=== PATIENT | female | born 1935 | race Caucasian/White ===

== ENCOUNTER 2016-05-11 16:28 | Inpatient (IN) | payer MEDICARE, BC ==
[~2016-05-11] VITALS: Ht 153.7 cm; Wt 78.3 kg
--- NOTE | ~2016-05-11 | CON ---
PATIENT'S NAME: INOCENCIA ARMIJO [facility] AGE: 81 Y [address] ROOM: [address] [address] LOCATION: GICU ADMIT DATE: 05/11/2016 Consultation DISCHARGE DATE: FAMILY PHYSICIAN: PHYSICIAN, UNKNOWN ATTENDING PHYSICIAN: CARLINE NASH DATE OF CONSULTATION: 05/11/2016 REFERRING PHYSICIAN: Luba Johnson NEPHROLOGY CONSULTATION REQUESTING PHYSICIAN: Dr. Wood. REASON FOR CONSULTATION: End-stage renal failure, the patient is on peritoneal dialysis. HISTORY OF PRESENT ILLNESS: The patient is an 81-year-old white female with end-stage renal disease from diabetes, hypertension, and cardiorenal syndrome. She is currently on CCPD. The patient was admitted to the hospital on April 06, 2016, with new onset atrial fibrillation. She also had nausea and vomiting at that time. Her son reports that over the last 2 days, she has been having abdominal pain, discomfort, vomiting and retching, and she at least passed 10 loose stools yesterday and today. At one point, she did notice that there was some blood in the stool. She went to the emergency room in [facility] with diffuse abdominal pain. She did have her peritoneal dialysis yesterday, and this morning she drained and actually had an ultrafiltration of 500 mL. Peritoneal dialysis fluid was clear. The patient progressively became hypotensive with systolic blood pressure in the 80s, and therefore, she was transferred to [facility] for further management. Her son reports that en route, she had at least 6 bowel movements. REVIEW OF SYSTEMS: GENERAL: She denies any fever. She is tired. HEENT: Denies any sore throat or sinus congestion. CARDIOVASCULAR: Denies any chest pain or dyspnea on exertion. RESPIRATORY: Denies shortness of breath, cough, or wheezing. GI: She has been having retching and persistent watery diarrhea and abdominal pain and discomfort. : She is a dialysis patient and does not make any urine. MUSCULOSKELETAL: She denies any joint pain or swelling. SKIN: Denies any rash or pruritus. Denies any allergies or hay fever. HEMATOLOGIC/LYMPHATICS: Denies any lymph node enlargement or easy bruising. ENDOCRINE: Denies any heat or cold intolerance. PSYCH: Denies any sadness, crying spells, poor concentration, or panic PATIENT'S NAME: DAVID ARMIJOA Vinny [facility] AGE: 81 Y [address] ROOM: [place] [address] LOCATION: GICU ADMIT DATE: 05/11/2016 Consultation DISCHARGE DATE: FAMILY PHYSICIAN: PHYSICIAN, UNKNOWN ATTENDING PHYSICIAN: CARLINE NASH. ALLERGIES: ALLERGIC TO PENICILLIN, CARVEDILOL, BYSTOLIC, HEPARIN, SPIRONOLACTONE, IBUPROFEN, QUININE, AND DILTIAZEM. MEDICATIONS: 1. Furosemide 200 mg in the morning. 2. Sucralfate 1 g twice a day. 3. Folic acid 400 mcg a day. 4. Imdur 60 mg a day. 5. Levothyroxine 137 mcg a day. 6. Omeprazole 20 mg a day. 7. Potassium 20 mEq a day. 8. Vitamin B12 100 mcg a day. 9. Calcitriol 0.25 mcg a day. 10. Lantus insulin 20 units every day. 11. Ferrous sulfate as prescribed. 12. Oxygen as prescribed. 13. Acetaminophen. 14. Ondansetron. 15. Mupirocin. 16. Ketoconazole. 17. Gentamicin. 18. Fluticasone. 19. Cetirizine. 20. Atorvastatin 80 mg a day. PAST MEDICAL HISTORY: End-stage renal failure, on peritoneal dialysis; obesity; peptic ulcer disease; leg edema; hypothyroidism; atrial fibrillation; COPD; chronic diastolic dysfunction of the heart; coronary artery disease. PAST SURGICAL HISTORY: Appendectomy, hysterectomy, coronary artery bypass grafting, cardiac catheterization, stent placement, peritoneal dialysis catheter placement. FAMILY HISTORY: No family history of kidney disease or dialysis. SOCIAL HISTORY: The patient is . Her was on hemodialysis for 8 years prior to his demise. She had 5 grown children. A son runs her dialysis treatment. A daughter last month from ovarian cancer. No history of tobacco or alcohol. PATIENT'S NAME: [facility] AGE: 81 Y [address] ROOM: [place] [address] LOCATION: [facility] ADMIT DATE: 05/11/2016 Consultation DISCHARGE DATE: FAMILY PHYSICIAN: PHYSICIAN, UNKNOWN ATTENDING PHYSICIAN: CARLINE NASH PHYSICAL EXAMINATION: GENERAL APPEARANCE: Elderly white female, looks pale with sunken eyes and sunken cheeks. VITAL SIGNS: Afebrile, pulse is 96, systolic blood pressure of 96, diastolic is 69, respiratory rate of 20. HEENT: Head is normocephalic. Pupils are round and equal. Normal eyelid and pale conjunctivae. Oral cavity clear. Dry mucosa. NECK: Trachea central. No thyromegaly. Flat jugular veins. No bruits. HEART: Sounds are audible in all the areas. Pulses are irregularly irregular. LUNGS: Bilaterally clear to auscultate. No intercostal retraction. ABDOMEN: Soft but mild diffuse tenderness. Peritoneal dialysis catheter with a clean exit site. EXTREMITIES: No clubbing or cyanosis. SKIN: No sign of vasculitis. She has poor skin turgor. LYMPHATICS: Did not examine lymphatics. NEUROLOGIC: The patient is alert and oriented x3. Grossly nonfocal. HIGHER PSYCHIATRIC FUNCTION: She has normal speech and mental status. LABORATORY DATA: Blood work drawn at the hospital in [place] this morning shows WBC of 17.9, hemoglobin 12.6, hematocrit 37.6, platelet count of 124. Potassium 3.4, chloride 93, anion gap of 31, bicarb of 19, BUN of 50, creatinine of 8.9, calcium 8.2, albumin of 1.0. ASSESSMENT: 1. End-stage renal failure. 2. Persistent diarrhea, most likely from C. difficile colitis. 3. Severe dehydration from volume loss. 4. Abdominal pain, again probably from C. difficile, but we need to rule out other possibility like ischemic bowel. 5. Hypothyroidism. 6. Chronic obstructive pulmonary disease. 7. Chronic congestive heart failure from diastolic dysfunction. 8. Elevated white count. 9. Coronary artery disease. PLAN: I will give her bolus of normal saline and then start her on lactated Ringer's at 100 mL an hour. I agree that she needs to go down for a CT scan of the abdomen with intravenous and without contrast to rule out possibility of ischemic bowel. There has been a mention that she had blood in the stool. I will also check her peritoneal dialysis fluid for cell count and culture. PATIENT'S NAME: INOCENCIA ARMIJO [facility] AGE: 81 Y [address] ROOM: [place] [address] LOCATION: [facility] ADMIT DATE: 05/11/2016 Consultation DISCHARGE DATE: FAMILY PHYSICIAN: PHYSICIAN, UNKNOWN ATTENDING PHYSICIAN: CARLINE NASH I would like to thank Dr. Wood for allowing me to participate in this patient's care. M ELICIA JOHNSON MD MII/modl /[id number] CC: Daren Davies MD d: 05/12/16 0020 t: 05/20/16 1505, CONSULTATION REPORT
--- NOTE | ~2016-05-11 | DS ---
PATIENT'S NAME: INOCENCIA ARMIJO [facility] AGE: 81 Y [address] ROOM: [id number] [place], [place] [address] LOCATION: GICU ADMIT DATE: 05/11/2016 Discharge Summary DISCHARGE DATE: 05/16/2016 FAMILY PHYSICIAN: Physician, Unknown ATTENDING PHYSICIAN: Akin Powell PRINCIPAL DIAGNOSIS: Acute diarrhea. SECONDARY DIAGNOSES: 1. End-stage renal disease, on peritoneal dialysis. 2. Type 2 diabetes. 3. Anemia of chronic disease. 4. Hypokalemia. 5. Atrial fibrillation, rate controlled. Not on any oral anticoagulation. 6. Coronary artery disease, not on aspirin or Plavix with history of stents due to extensive history of gastrointestinal bleeding. HOSPITAL COURSE: An 81-year-old lady with the above-mentioned past medical history, who was admitted to the [facility] with abdominal pain and diarrhea. No bacterial infectious cause of diarrhea was identified including stool culture and C. diff assays. There was some concern for melena and stool guaiac test was positive, but her hemoglobin stayed stable and it was deemed that the stool guaiac is falsely positive. She was volume resuscitated, and her diarrhea resolved over the course of the next couple of days. During the hospital course, Gastroenterology consultation was obtained as well. Nephrology also helped with the end-stage renal disease and managing the peritoneal dialysis. There was some concern for SBP, but paracentesis was negative for any high neutrophils or WBC count. On discharge, no medication changes were made to her home meds. On discharge, home medications include, 1. Tylenol 500 mg p.o. every night at bedtime. 2. Amiodarone 200 mg p.o. twice daily. 3. Atorvastatin 80 mg p.o. every night at bedtime. 4. Calcitriol 0.25 mcg p.o. every day. 5. Cyanocobalamin 20,000 mcg p.o. every day. 6. Diphenhydramine 25 mg p.o. every night at bedtime. 7. Folic acid 400 mcg p.o. every day. 8. Clindamycin 600 mg p.o. 1 time p.r.n. predental prophylaxis. 9. Insulin glargine 20 units subcu every night at bedtime. 10. Insulin lispro 6 to 10 units subcu 3 times daily per sliding scale. 11. Isosorbide mononitrate 60 mg p.o. every day. 12. Levothyroxine 137 mcg p.o. every day. 13. Omeprazole 40 mg p.o. twice daily. 14. Sucralfate 1 g p.o. twice daily. 15. Zofran 4 mg p.o. every 8 hours p.r.n. for nausea and vomiting. 16. CPAP oxygen tank. PATIENT'S NAME: INOCENCIA ARMIJO [facility] AGE: 81 Y [address] ROOM: [id number] [place], [place] [address] LOCATION: [facility] ADMIT DATE: 05/11/2016 Discharge Summary DISCHARGE DATE: 05/16/2016 FAMILY PHYSICIAN: Physician, Unknown ATTENDING PHYSICIAN: Akin Powell 17. Darbepoetin with the dialysis. DISCHARGE INSTRUCTIONS: Diet, renal diet. Activity, no restrictions. Follow up with the primary care physician in 1 week. HEMODYNAMICS: Stable on discharge. NOTABLE LAB WORK ON DISCHARGE: Hemoglobin 9.8, platelets 64. Sodium 132; potassium 3.0, which was replaced; chloride 98; bicarb 19, calcium 7.0; BUN and creatinine were 49 and 7.8 respectively given she is on chronic peritoneal dialysis. I spent greater than 35 minutes in discharge planning of this patient. MD LORENZO BONILLA/florentino /[id number] d: 05/17/16 0105 t: 05/21/16 0751, DISCHARGE SUMMARY
--- NOTE | ~2016-05-11 | HP ---
PATIENT'S NAME: INOCENCIA ARMIJO [facility] AGE: 81 Y [address] ROOM: [address] [address] LOCATION: [facility] ADMIT DATE: 05/11/2016 History & Physical DISCHARGE DATE: FAMILY PHYSICIAN: PHYSICIAN, UNKNOWN ATTENDING PHYSICIAN: CARLINE NASH DATE OF SERVICE: ATTENDING PHYSICIAN: Tomi Lam M.D. PRIMARY CARE PHYSICIAN: None. CHIEF COMPLAINT: Abdominal pain. HISTORY OF PRESENT ILLNESS: This is an 81-year-old female with a history of end-stage renal disease, on peritoneal dialysis. The patient recently had a demise of her daughter in [place], [place]. She traveled from [place], [place], yesterday and came back last night to her home in [place]. The patient has been evaluated repeatedly for abdominal pain at [facility]. She was here around [place] time, at which point she was thought to have pneumonia and was treated. She was then discharged subsequently. She re-presented back to the ER and was admitted for concerns of peritonitis after Ama[place], peritoneal fluid culture at that point of time was negative. The patient continued to do well and she was discharged. The patient states that she has been having diarrhea for the past 2 to 3 days. She had 10 episodes of watery bowel movement yesterday. She also had about 6 bowel movements today, which is all watery. She has noticed some blood in her stool per the patient. She complains of slight lightheadedness. She complains of abdominal discomfort, primarily on the right upper and right lower quadrant. She has been nauseous and has been retching as well. Denies any fever history. She stated that she did have her peritoneal dialysis last night and the fluid has been clear so far. Denies any chest pain. Denies any shortness of breath. She has a history of COPD and requires O2 and uses CPAP at bedtime. Denies any other pain issues. No other complaints at this point of time. REVIEW OF SYSTEMS: A 10-point review of system was done and was otherwise negative except as mentioned above. FAMILY HISTORY: Father with CHF. Mother with stroke. Sister with breast cancer. Daughter passed from ovarian cancer. PATIENT'S NAME: INOCENCIA ARMIJO [facility] AGE: 81 Y [address] ROOM: [address] [address] LOCATION: GICU ADMIT DATE: 05/11/2016 History & Physical DISCHARGE DATE: FAMILY PHYSICIAN: PHYSICIAN, UNKNOWN ATTENDING PHYSICIAN: CARLINE NASH PAST SURGICAL HISTORY: 1. Partial hysterectomy. 2. Appendectomy. 3. Three-vessel CABG. 4. History of cardiac stents. 5. Many colonoscopies. 6. Peritonei dialysis catheter placement. 7. Bilateral cataract surgery. 8. Tonsillectomy. 9. 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 10. Placement of port. PAST MEDICAL HISTORY: 1. CAD, status post CABG. 2. Hypertension. 3. CVA. 4. TIA 2 years ago. 5. AFib. 6. Congestive heart failure. 7. COPD. 8. VALE, on CPAP at bedtime. 9. Lung scarring from Coreg. 10. Arthritis. 11. End-stage renal disease, on peritoneal dialysis. 12. Diabetes mellitus type 2. 13. Thyroid disease. SOCIAL HISTORY: Denies smoking or alcohol use. She currently lives independently in [place]. She is a former smoker, 20-year history of smoking. PHYSICAL EXAMINATION: VITAL SIGNS: Temperature 98.1; pulse 80, regular; respirations 18; blood pressure 96/57; and saturation 98% on 4 L nasal cannula oxygen. GENERAL: The patient is alert and oriented x3, answers all questions appropriately, in no acute distress. HEENT: Head: Normocephalic, atraumatic. Pupils are equal, round, and reactive to light. Extraocular muscles are intact. Nares clear. Throat clear. Mucous membranes dry. NECK: Supple. No nuchal rigidity. HEART: Regular rate and rhythm. LUNGS: Clear to auscultation bilaterally. ABDOMEN: Soft. The patient has slight tenderness to palpation in the right upper and right lower quadrant. Slight guarding, but no rigidity noted. Peritoneal dialysis catheter is present. Area around the peritoneal dialysis PATIENT'S NAME: INOCENCIA ARMIJO [facility] AGE: 81 Y [address] ROOM: [address] [address] LOCATION: GICU ADMIT DATE: 05/11/2016 History & Physical DISCHARGE DATE: FAMILY PHYSICIAN: PHYSICIAN, UNKNOWN ATTENDING PHYSICIAN: CARLINE NASH appears clear. Bowel sounds present. EXTREMITIES: There is no clubbing, cyanosis, or edema. VASCULAR: Pulses 2+ distally bilaterally. NEUROLOGIC: The patient is alert and oriented x3. Follows all commands. Moves all extremities. Gait is not assessed. Cranial nerves 2 through 12 grossly intact. DIAGNOSTIC STUDIES: Studies were reviewed from the referral hospital. Lipase 296. CBC showed a white count of 17.9, hemoglobin 12.6, hematocrit 37.6, platelets 124. Amylase 148. CMP showed sodium 140, potassium 3.4, chloride 93, bicarb 19, glucose 319, BUN 50, creatinine 8.91, GFR 4, calcium 8.2, total protein 7.2, globulin 3.5, albumin 3.7, AST 21, ALT 23, alkaline phosphatase 158, total bilirubin 0.8, C-reactive protein 6.0. Studies were done at [facility]. EKG showed sinus rhythm with a first-degree AV block and a OK interval of 154 milliseconds. Also showed left anterior fascicular block, rate of 77 beats per minute. No acute ST changes noted. Chest x-ray showed no acute cardiopulmonary abnormality. ABG was done on admission and showed a pH of 7.37, pCO2 of 37, pO2 of 101, bicarb 21.4. Lactate level on admission was 1.5. CBC showed a white count of 18.7, hemoglobin 11.7, hematocrit 36.4, platelets 110. CMP showed sodium 138, potassium 3.0, chloride 98, bicarb 24, BUN 53, creatinine 10.1, glucose 170, calcium 7.3, total protein 7.3, albumin 2.5, AST 19, ALT 16, alkaline phosphatase 136, total bilirubin 0.4, GFR 4, anion gap 19.0, globulin 4.8, PT 13.1, INR 1.2, PTT 31. Procalcitonin level 0.81. Peritoneal fluid studies have been obtained and are pending at this point of time. CT abdomen and pelvis with and without contrast was done and showed a central dialysis catheter present. A small amount of free fluid within the abdomen and pelvis noted. Cholelithiasis present. Indeterminate left adrenal nodule measuring 15 mm was noted. There is a benign cystic lesion involving the tail of the pancreas measuring 10 mm. No pancreatitis noted. Blood cultures are pending at this point of time. Peritoneal fluid culture is pending. C. diff test pending. Stool studies pending. ASSESSMENT AND PLAN: An 81-year-old female with a history of end-stage renal disease, on peritoneal dialysis, presenting with abdominal pain. 1. Abdominal pain. Unsure about the cause of her abdominal pain. This could be secondary to Clostridium difficile colitis versus peritonitis. Discussed with Dr. De Dios and chances of peritonitis are low. We still did obtain a peritoneal fluid for culture. I will place her on broad- spectrum antibiotics including Azactam and Flagyl for now. Cultures have been obtained. The patient is on the sepsis protocol. 2. Sepsis. Concern for sepsis. The patient is in the ICU. Her blood PATIENT'S NAME: INOCENCIA ARMIJO [facility] AGE: 81 Y [address] ROOM: [place] [address] LOCATION: [facility] ADMIT DATE: 05/11/2016 History & Physical DISCHARGE DATE: FAMILY PHYSICIAN: PHYSICIAN, UNKNOWN ATTENDING PHYSICIAN: CARLINE NASH pressure is slightly on the lower side. We will hydrate her gently with lactated Ringer's. 3. End-stage renal disease, on peritoneal dialysis. Further recommendations per Dr. De Dios. 4. History of chronic obstructive pulmonary disease. RT to score and treat. Monitor for now. O2 as needed to keep saturations 88% to 95%. 5. Diabetes mellitus. I will place her on sliding scale insulin for now. 6. History of coronary artery disease, status post coronary artery bypass graft. Continue home medications. 7. Deep vein thrombosis prophylaxis. SCD to legs. The patient has heparin allergy. 8. Code status, full code. Discussed with the patient at the time of admission. TOMI LAM MD MT/florentino /[id number] D: 443 T: HISTORY & PHYSICAL
--- NOTE | ~2016-05-11 | CON ---
PATIENT'S NAME: INOCENCIA ARMIJO [facility] AGE: 81 Y [address] ROOM: [id number], [place] [address] LOCATION: GICU ADMIT DATE: 05/11/2016 Consultation DISCHARGE DATE: FAMILY PHYSICIAN: PHYSICIAN, UNKNOWN ATTENDING PHYSICIAN: CARLINE NASH DATE OF CONSULTATION: 05/14/2016 REFERRING PHYSICIAN: Luba De Dios REFERRING PROVIDER: Pippa Goel MD REASON FOR CONSULTATION: Diarrhea and anemia. HISTORY OF PRESENT ILLNESS: This is a very pleasant, 81-year-old female with history of end-stage renal disease, on home peritoneal dialysis. The patient was admitted with significant diarrhea, in upwards of 20 times per day. The patient is a good historian. She does recall recently being under a significant amount of stress as the patient's daughter recently . The patient had traveled to [place], [place]. She began not feeling well on Friday. The patient, at that time, was experiencing significant fatigue. On Friday, she began having diarrhea. She describes this as loose watery without any formed stool. At that time, she denied any blood in the stool and/or melena. The patient retreated back home. On Friday and Friday, the abdominal pain and diarrhea became significantly worse, in upwards of 20 times per day. The patient did notice at that time some bright red blood within the stool and with wiping. She does state that she was significantly "raw" secondary to the numerous bowel movements. In questioning the patient, the patient did undergo a colonoscopy approximately 3 years ago. She does have a history of what appears to be small bowel AVMs with double-balloon enteroscopy and cautery completed approximately 3 years ago in [place]. The patient has been receiving Aranesp in regard to her anemia. Her anemia has been better since starting this. She does deny any acute blood loss. No vomiting of blood or noticeable blood in the stool. The patient previously had undergone multiple blood transfusions, though the last blood transfusion she recalls was approximately 5 months ago. The patient, at the time of our evaluation, denied any chest pain or chest pressure. No lightheadedness, abdominal pain, nausea, vomiting, fever, or chills. PAST MEDICAL HISTORY: End-stage renal disease, on peritoneal dialysis; CAD, status post CABG; hypertension; CVA; TIA approximately 2 years ago; atrial fibrillation; congestive heart failure; COPD; VALE, on CPAP at bedtime; lung scarring from Coreg; arthritis; diabetes mellitus, type 2; thyroid disease; and history of small bowel arteriovenous malformation. PATIENT'S NAME: INOCENCIA ARMIJO [facility] AGE: 81 Y [address] 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 SOCIAL HISTORY: The patient denies any smoking or alcohol use. She currently lives independently in [place]. She does recall being under a significant amount of stress recently as the patient's daughter recently . The patient's son is at bedside during interview. She does appear to have good social support. FAMILY HISTORY: The patient's father with congestive heart failure. The patient's mother had a stroke. The patient's sister with breast cancer. The patient's daughter recently with ovarian cancer. ALLERGIES: PENICILLINS, SPIRONOLACTONE, IBUPROFEN, QUININE, METOPROLOL, CARVEDILOL, DILTIAZEM, BYSTOLIC, AND HEPARIN. CURRENT MEDICATIONS: Please refer to the medication administration record. REVIEW OF SYSTEMS: A 10-point review of systems was completed, all were negative except for those identified in the History of Present Illness. PHYSICAL EXAMINATION: GENERAL: A very pleasant, 81-year-old female, sitting in the chair, who appears to be in no acute distress. VITAL SIGNS: Temperature 98.1, pulse of 71, respirations of 16, blood pressure 135/54, and oxygen saturation is 97% on room air. SKIN: [place], warm, and dry. No jaundice. HEENT: Head is normocephalic and atraumatic. Pupils are equal, round, and reactive to light. Sclerae are clear, nonicteric. Oral mucosa is pink and moist. No thyromegaly. NECK: Soft and supple. CARDIOVASCULAR: Regular, normal S1 and S2. RESPIRATORY: Respirations even and unlabored. Lungs clear to auscultation. ABDOMEN: Soft, round, nontender, and nondistended. Bowel sounds positive x4 quadrants. PATIENT'S NAME: INOCENCIA ARMIJO [facility] AGE: 81 Y [address] ROOM: [address] [address] LOCATION: CU ADMIT DATE: 05/11/2016 Consultation DISCHARGE DATE: FAMILY PHYSICIAN: PHYSICIAN, UNKNOWN ATTENDING PHYSICIAN: CARLINE NASH MUSCULOSKELETAL: No muscle weakness or atrophy. EXTREMITIES: No clubbing, cyanosis, or edema. NEUROLOGICAL: Grossly nonfocal. LABORATORY AND DIAGNOSTIC DATA: White blood cell count of 10.0, hemoglobin has trended downward from admission of 11.7 with a recheck of 8.2, hematocrit was 25.6, and platelets of 55. Chemistry panel includes a glucose of 151, BUN of 53, creatinine of 8.5, sodium 133, potassium 3.6, chloride of 102, and CO2 of 18. Albumin of 2.0. Liver enzymes are within normal limits. Prothrombin time of 13.1, INR of 1.2, and PTT of 31. The patient also did undergo abdominal CT and pelvis CAT scan on May 11, 2016. This did show peritoneal dialysis. Small cholelithiasis without acute inflammation or biliary dilation. Mild, generally increased bowel fluid without obstruction or focal inflammation, possibly infectious diarrheal illness could produce this appearance. ASSESSMENT AND PLAN: Again this is a pleasant, 81-year-old female with end-stage renal disease, currently on peritoneal dialysis. We were asked to see in consultation for the patient's diarrhea as well as anemia. 1. Diarrhea. A long discussion was had with the patient as well as the patient's son who was at bedside during our evaluation. We discussed with the patient undergoing a colonoscopy for further evaluation, ruling out inflammatory bowel disease as well as possible etiology regarding the patient's acute diarrhea. At this time, the patient would like to hold off on intervention as she does feel that the diarrhea has significantly improved. This was discussed with Dr. Ginger Dowd. We will continue to monitor the patient's fluid status as well as her diarrhea output. 2. Anemia. The patient does have anemia of chronic disease secondary to her end-stage renal disease. The patient is still recommended to receive her Aranesp. If the patient continues to have a retreat of her hemoglobin, further recommendations may include a complete workup with possible repeat balloon enteroscopy at an outside facility for further evaluation and possible treatment of the patient's history of small bowel arteriovenous malformations. We will also request for these records to be sent to us for evaluation as well. This was discussed with Dr. Pippa Goel per Dr. Ginger Dowd. Thank you for this consult and allowing us to participate in the care of this patient. We will continue to monitor, evaluate, and treat as appropriate. JUSTUS BYRD APRN FOR GINGER DOWD MD PATIENT'S NAME: INOCENCIA ARMIJO [facility] AGE: 81 Y [address] ROOM: [place] [address] LOCATION: [facility] ADMIT DATE: 05/11/2016 Consultation DISCHARGE DATE: FAMILY PHYSICIAN: PHYSICIAN, UNKNOWN ATTENDING PHYSICIAN: CARLINE NASH/florentino /[id number] d: 05/15/16 1225 t: 05/21/16 1617, CONSULTATION REPORT
[~2016-05-11 16:28] MED LIST: APRESOLINE50 MG PO; ARANESP 10100 MCG/0. SUB-Q; BACTROBAN N1 GM/TUBE TOP; BENADRYL25 MG PO; CARAFATE1 GM PO; CATAPRES0.2 MG PO; CLEOCIN150 MG PO; CORDARONE,PACE200 MG PO; CPAP INH; FERROUS SULFATE IM/IV; FLONASE 50 MCG/16 GM INH; FOLIC ACID 40400 MCG PO; GENTAMICIN15 GM TOP; HUMALOG KW200 UNIT/1 SUB-Q; HYDROCHLOROTHIA50 MG PO; IMDUR60 MG PO; K-TAB ER20 MEQ PO; LANTUS SOL100 UNIT/1 SUB-Q; LASIX80 MG PO; LEVOTHROID (S137 MCG PO; LIPITOR80 MG PO; MAGNESIUM OXID250 MG PO; NIZORAL30 GM TOP; NORVASC5 MG PO; OMEPRAZOLE40 MG PO; OXYGEN M-15 INH; ROCALTROL0.25 MCG PO; TYLENOL325 MG PO; VITAMIN B-121000 MCG PO; ZOCOR10 MG PO; ZOFRAN ODT4 MG PO; ZYRTEC10 MG PO
[2016-05-11 23:01] LABS: BICARBONATE 21.4 mmol/L (18.0-23.0); LACTATE 1.5 mEq/L (0.50-1.60); PCO2 37 mmHg (35-45); PO2 101 mmHg (80-90)
[2016-05-11 23:06] LABS: BICARBONATE 23.1 mmol/L (18.0-23.0); PCO2 68 mmHg (35-45)
[2016-05-11 23:09] LABS: INR - (THERAPEUTIC) 1.2 (0.9-1.1); PROTIME 13.1 SECONDS (9.6-11.1)
[2016-05-11 23:16] LABS: ALBUMIN 2.5 gm/dL (3.5-5.0); TOTAL BILIRUBIN 0.4 mg/dL (0.0-1.5); TOTAL PROTEIN 7.3 g/dL (6.0-8.4)
[2016-05-11 23:18] LABS: PO2 24 mmHg (80-90)
[2016-05-11 23:19] LABS: CALCIUM 7.3 mg/dL (8.5-10.5); CREATININE 10.1 mg/dL (0.5-1.1)
[2016-05-11 23:30] LABS: BASOPHIL # 0.1 K/uL (0.0-0.2); BASOPHIL % 0.3 %; EOSINOPHIL % 0.1 %; HEMATOCRIT 36.4 % (30.0-46.0); HEMOGLOBIN 11.7 g/dL (10.0-15.0); IMMATURE GRANULOCYTE # 0.2 K/uL (0.0-0.3); IMMATURE GRANULOCYTE % 1.1 %; LYMPHOCYTE # 1.4 K/uL (0.8-4.0); LYMPHOCYTE % 7.2 %; MCH 26.8 pg (27.0-34.0); MCHC 32.1 gm/dL (32.0-36.5); MCV 83.3 fl (83.0-98.0); MONOCYTE # 1.4 K/uL (0.0-1.0); MONOCYTE % 7.7 %; MPV 10.7 fl (9.4-12.4); NEUTROPHIL # (ANC) 15.6 K/uL (1.8-7.8); NEUTROPHIL % 83.6 %; NRBC % 0 /100WBC (0-0.00); PLATELET COUNT 110 K/uL (150-450); RBC 4.37 M/uL (3.00-5.00); RDW-CV 17.8 % (11.9-14.6); WBC 18.7 K/uL (4.0-11.0)
[2016-05-12 01:21] LABS: PERITONEAL FLUID TURBIDITY 1+ (CLEAR)
[2016-05-12 02:08] LABS: % PERITONEAL FLUID MONO/MACRO 39 % (0-0); % PERITONEAL FLUID NEUT 42 % (0-25)
[2016-05-12 04:35] LABS: BICARBONATE 21.1 mmol/L (18.0-23.0); LACTATE 1.3 mEq/L (0.50-1.60); PCO2 40 mmHg (35-45); PO2 97 mmHg (80-90)
--- NOTE | 2016-05-12 04:53 | NUR ---
PT ADMITTED AT 1940. NEURO INTACT. HR 60S-90S, SR ON MONITOR. BP LOW AT TIMES BUT RESOLVING THROUGHOUT SHIFT. AFEBRILE. POOR TURGOR. ARRIVED ON 4LNC, DECREASED TO 2L (PT WEARS 2L AT HOME). SATS 90S-100S. LUNGS CLEAR/DIM THROUGHOUT. OCCASIONAL DYSPNEA ON EXERTION. BM X20+ FOR LAST 24 HOURS. LIQID, DARK BROWN, OCCASIONAL BLOOD. PT VOICED CONCERN OVER C-DIFF. PT PLACED IN ISOLATION AND SPECIMAN COLLECTED. PT ANURIC MOST DAYS. PD CATHETER IN PLACE. STATES SHE WAS HAVING DIFFICULTY EMPTYING PREVIOUS NIGHT. SKIN WITH MODERATE BREAKDOWN DUE TO FREQENT BM; IMPROVING WITH MOISTURE BARRIER AND SENSICARE MIXTURE. PIV IN PLACE ON ARRIVAL NO LONGER ABLE TO BE USED; PULLED AND PIV X2 STARTED. PROCEDURES/TEST FOR PT THIS SHIFT INCLUDED CT OF ABDOMEN/PELVIS, STOOL FOR WBC/OVA/PARASITES/C.DIFF, BLOOD CULTURES, PERITONEAL FLUID CULTURES, CXR, EKG. CHARLINE HAINES RN
--- NOTE | 2016-05-13 03:45 | NUR ---
A/Ox3. C/O some chronic n/t in toes that is baseline for her. SR with HR 50-70s. SBP 110-140s. CPAP at night. 5 loose bowels this shift with whole pills present at times. Treated HS blood sugar. Peritoneal dialysis this shift. Follow up: Continue to monitor at this time. Transfer when beds avaliable.
[2016-05-13 07:16] LABS: BASOPHIL % 0.4 %; EOSINOPHIL # 0.1 K/uL (0.0-0.5); EOSINOPHIL % 1.1 %; HEMATOCRIT 30.7 % (30.0-46.0); HEMOGLOBIN 9.8 g/dL (10.0-15.0); IMMATURE GRANULOCYTE # 0.2 K/uL (0.0-0.3); LYMPHOCYTE # 1.1 K/uL (0.8-4.0); LYMPHOCYTE % 11.2 %; MCH 26.8 pg (27.0-34.0); MCHC 31.9 gm/dL (32.0-36.5); MCV 84.1 fl (83.0-98.0); MONOCYTE # 0.8 K/uL (0.0-1.0); MONOCYTE % 7.5 %; NEUTROPHIL # (ANC) 7.8 K/uL (1.8-7.8); NEUTROPHIL % 77.8 %; NRBC % 0 /100WBC (0-0.00); RBC 3.65 M/uL (3.00-5.00); RDW-CV 17.9 % (11.9-14.6)
[2016-05-13 07:24] LABS: PLATELET COUNT 74 K/uL (150-450)
[2016-05-13 07:44] LABS: ANION GAP 19.4 (10.0-19.0); POTASSIUM 3.4 mMol/L (3.7-5.1)
[2016-05-13 07:53] LABS: CALCIUM 6.4 mg/dL (8.5-10.5)
[2016-05-13 07:54] LABS: CREATININE 8.8 mg/dL (0.5-1.1); TOTAL BILIRUBIN 0.3 mg/dL (0.0-1.5)
--- NOTE | 2016-05-13 16:41 | NUR ---
Significant Event: GI: Mushy BM x 4 with one liquid at 1630. Zofran 4mg given for nausea at 1635. : Peritoneal dialysis by dialysis nurse last pm. CARDIO: episode of bradycarda (rates down to 45) with return to 70s-80s. Dr. Goel called. No intervention unless hemodynamically unstable. SBP remains in 120s. RESP: Room air. SaO2 97%. Follow up: Call dialysis nurse alteration workroom supervisor if patient transfers. Do not move dialysis equipment.
--- NOTE | 2016-05-14 03:37 | NUR ---
Significant Event: A/Ox3. Junctional rhythm in 50s. Mid 40s at times. A fib with rates in 70s at times. MD aware. RA, CPAP at [facility]. Diminished lung sounds. Anuric. PD at [facility]. Only half treatment last night due to alarms. Dialysis nurse notified. Denies pain. Follow up: Continue
[2016-05-14 05:10] LABS: HEMATOCRIT 25.6 % (30.0-46.0); HEMOGLOBIN 8.2 g/dL (10.0-15.0)
[2016-05-14 05:23] LABS: ANION GAP 16.6 (10.0-19.0); PHOSPHORUS 3.5 mg/dL (2.5-4.9); POTASSIUM 3.6 mMol/L (3.7-5.1)
[2016-05-14 05:27] LABS: CALCIUM 6.3 mg/dL (8.5-10.5); CREATININE 8.5 mg/dL (0.5-1.1)
--- NOTE | 2016-05-14 14:30 | NUR ---
Introduced self and role of care management to patient and her son. She lives in [place]sele. Her son lives 10 blocks away. She states that she is able to do all her own ADL's. She does ahve a walker that she was using for a few days before being hospitalized. Her son and daughter in law do assist if needed. Her daughter in law does come in and do her housekeeping. They plan on patient returning home on discharge. They deny any need at this time. Will continue to follow.
--- NOTE | 2016-05-14 16:47 | NUR ---
PT A/OX. VSS, ACCELERATED JUNCTIONAL, NO AFIB THIS SHIFT. HEMATEST X1 POSITIVE WITH SMALL LOOSE STOOL X2. ANURIC, PLAN FOR PD TONIGHT WITH 2.5 BAG TO BE USED. NO C/O PAIN, NO N/V/D, INTAKE TOLERATED WELL AND SUFFICIENT. L) AC PIV DC'D D/T LEAKING AND NEW FA STARTED AND S.L. FLAGYL DC'D, PROTONIX CHANGED TO PO. UP WITH PT/OT AND NO C/O CALDERON, OR SOB. REMAINS ON RA AND CPAP AT [facility]. PD CATHETER SITE C/D/I, WITH HD RN ASSESSING.
[2016-05-15 05:59] LABS: HEMATOCRIT 28.4 % (30.0-46.0); MCH 26.6 pg (27.0-34.0); MCHC 31.7 gm/dL (32.0-36.5); MPV 11.1 fl (9.4-12.4); RBC 3.38 M/uL (3.00-5.00); RDW-CV 17.8 % (11.9-14.6); WBC 6.9 K/uL (4.0-11.0)
[2016-05-15 06:05] LABS: ANION GAP 17.6 (10.0-19.0); PHOSPHORUS 3.6 mg/dL (2.5-4.9); POTASSIUM 3.6 mMol/L (3.7-5.1)
[2016-05-15 06:07] LABS: PLATELET COUNT 55 K/uL (150-450)
[2016-05-15 06:08] LABS: CALCIUM 6.6 mg/dL (8.5-10.5); CREATININE 8.4 mg/dL (0.5-1.1); MAGNESIUM 1.1 mg/dL (1.3-2.6)
[2016-05-15 06:55] LABS: ABSOLUTE NEUTROPHIL CT (ANC) 5.5 K/uL (1.8-7.8); LYMPHOCYTE # 0.6 K/uL (0.8-4.0); LYMPHOCYTE % 8 %; MONOCYTE # 0.1 K/uL (0.0-1.0); SEGMENTED NEUTROPHIL # 5.5 K/uL (1.8-7.8); SEGMENTED NEUTROPHIL % 80 %
--- NOTE | 2016-05-15 07:17 | NUR ---
Significant Event: A/O. VSS. RA DURING THE DAY, CPAP WITH 1L OVERNIGHT. PD STARTED OVERNIGHT, DID HAVE AIR DETECTED ERRORS. WAS RESTARTED PER SUMMER LAW ASSOCIATE OVERNIGHT. NO UOP. BM X2. HEMETEST POSITIVE ON BOTH STOOLS. ADEQUATE PO INTAKE. UP WITH SBA, WALKER AND GAITBELT. HAD SLIGHT ABDOMINAL PAIN WHEN PD STARTED, THEN RESOLVED WITHOUT INTERVENTION. Follow up: MONITOR BM'S, PD.
--- NOTE | 2016-05-15 17:36 | NUR ---
Significant Event: Patient is alert and oriented X3. Ambulates with standby assist. No complaints of pain. She wanted to go home today and would have, but Dr. Wright wanted to watch her over the night to make sure hgb doesn't drop. She only had 2 loose stool today and they were brown. Hgb has stayed stable so far. She will get peritoneal dialysis tonight. Follow up: Home tomorrow
--- NOTE | 2016-05-16 04:48 | NUR ---
Significant Event: PATIENT ALERT/ORIENTED. DENIES N/T THROUGHOUT. AFEBRILE. NORMOTENSIVE. CONTINUES ON 3L PER NASAL CANNULA. GOOD URINE OUTPUT PER CHRONIC INDWELLING CATHETER. NO BM THIS SHIFT, ENCOURAGED DIET, PT DECLINED SUPPLEMENTAL GLUCERNA. AC/HS ACCUCHECKS. PIV X2. REPLACED KCL 80MEQ AND 30MMOL KPHOS PER PIV THIS SHIFT. Follow up: UP TO CHAIR?
--- NOTE | 2016-05-16 04:56 | NUR ---
Significant Event: PATIENT ALERT/ORIENTED X3. DENIES NUMBNESS/TINGLING/PAIN THROUGHOUT. JUNCTIONAL BEATS NOTED DURING THE SHIFT WITH RETURN TO 1ST DEGREE AV BLOCK. NO HEMODYNAMIC INSTABILITY WITH RHYTHM CHANGE NOTED. HOME CPAP OVERNIGHT. PD DIALYSIS WITH CASSETTE ERROR'S THIS SHIFT AGAIN, COMPANY CALLED WITH ATTEMPT TO RESET. DIALYSIS NURSE IN TO CHANGE OUT CYCLER AND CASSETTE, RUNNING WITH NO ALARMS SINCE. NO BM THIS SHIFT. PIV, SL. Follow up: HOME TODAY?
[2016-05-16 05:10] LABS: BASOPHIL # 0.1 K/uL (0.0-0.2); BASOPHIL % 1.2 %; EOSINOPHIL # 0.3 K/uL (0.0-0.5); EOSINOPHIL % 3.2 %; HEMATOCRIT 30.4 % (30.0-46.0); HEMOGLOBIN 9.8 g/dL (10.0-15.0); IMMATURE GRANULOCYTE # 0.3 K/uL (0.0-0.3); IMMATURE GRANULOCYTE % 3.9 %; LYMPHOCYTE # 0.9 K/uL (0.8-4.0); LYMPHOCYTE % 10.4 %; MCH 27.1 pg (27.0-34.0); MCHC 32.2 gm/dL (32.0-36.5); MCV 84.2 fl (83.0-98.0); MONOCYTE # 0.7 K/uL (0.0-1.0); MONOCYTE % 8.9 %; MPV 10.7 fl (9.4-12.4); NEUTROPHIL # (ANC) 5.9 K/uL (1.8-7.8); NEUTROPHIL % 72.4 %; NRBC % 0 /100WBC (0-0.00); PLATELET COUNT 64 K/uL (150-450); RBC 3.61 M/uL (3.00-5.00); RDW-CV 18.1 % (11.9-14.6); WBC 8.2 K/uL (4.0-11.0)
[2016-05-16 05:28] LABS: ALBUMIN 2.2 gm/dL (3.5-5.0); PHOSPHORUS 4.2 mg/dL (2.5-4.9)
[2016-05-16 05:29] LABS: CREATININE 7.8 mg/dL (0.5-1.1)
--- NOTE | 2016-05-16 08:50 | NUR ---
A - PT SCREENED D/T LOS. PERITONEAL DIALYSIS. HT: 60" WT: 173# BMI: 33.1 LABS: ACCUCHECK WNL->200, NA 132, K+ 3.3, GLU 154, BUN/CR 49/7.8, ALB 2.2 MEDS: LEVEMIR, PROTONIX, CARB COUNT INSULIN, CARAFATE, SYNTHROID, SSI, NAUSEA DIET: CARDIAC. INTAKE: MOSTLY 50-100% NEEDS: 4089-7187 KCAL (30-35 KCAL/KG IBW), 54-63 G PRO (1.2-1.4 G/KG IBW), 1575 ML FLUID (35 ML/KG IBW) D - NO NUTRITION RELATED DIAGNOSIS IDENTIFIED AT THIS TIME. I - GOAL FOR INTAKE TO REMAIN 50-100% FOR DURATION OF STAY. M/E - WILL ASSIST NEEDED.
--- NOTE | 2016-05-16 12:56 | NUR ---
Received a call from patient's nurse Brielle. She states that they would like home health to follow patient on discharge. I spoke with patient and son, they would like [facility] in [place] to follow patient. I called and spoke with Mayda and gave referral information. Referral informaiton, discharge orders, instructions and face to face faxed to [phone]. Patient will be discharged to home with home health.
[2016-06-03] MEDS ORDERED: K-TAB ER20 MEQ PO (13:40)
[2016-06-03] MEDS ORDERED: GENTAMICIN SULF30 GM TOP (13:41)
[2016-06-09] MEDS ORDERED: MIDODRINE HCL5 MG PO (12:53)
[2016-06-09] MEDS ORDERED: "\\\"PREP SPRAY\\\"-TIN4 OZ" (12:53)
[2016-06-09] MEDS ORDERED: EPOGEN (2020000 UNIT (12:58)
[2016-08-26] MEDS ORDERED: NOVOLOG FL100 UNIT/1 SUB-Q (14:15)
[2016-08-26] MEDS ORDERED: MIDODRINE HCL10 MG PO (14:17)
[2016-08-29] MEDS ORDERED: NORCO 5-325 TA1 EACH PO (08:58)
[2016-10-02] MEDS ORDERED: EPOGEN (15:21)
[2016-10-02] MEDS ORDERED: CLEOCIN150 MG PO (15:23)
[2016-10-02] MEDS ORDERED: NORVASC10 MG PO (15:26)
[2016-10-02] MEDS ORDERED: COZAAR50 MG PO (15:27)
== END 2016-05-16 13:07 | disposition disaster alternative care site (69) | DRG 871 ==
LOC: GICU 19:37
PROVIDERS: Family Medicine; Internal Medicine; Internal Medicine Nephrology; ADMIT Internal Medicine
DX: A41.9 Sepsis, unspecified organism (principal); N18.6 End stage renal disease; I13.2 Hypertensive heart and chronic kidney disease with heart failure and with stage 5 chronic kidney disease, or end stage renal disease; I48.91 Unspecified atrial fibrillation; E11.22 Type 2 diabetes mellitus with diabetic chronic kidney disease; E83.42 Hypomagnesemia; J44.9 Chronic obstructive pulmonary disease, unspecified; E86.0 Dehydration; K92.1 Melena; E83.51 Hypocalcemia; I50.32 Chronic diastolic (congestive) heart failure; I25.10 Atherosclerotic heart disease of native coronary artery without angina pectoris; E87.6 Hypokalemia; R19.7 Diarrhea, unspecified; E03.9 Hypothyroidism, unspecified; G47.33 Obstructive sleep apnea (adult) (pediatric); M19.90 Unspecified osteoarthritis, unspecified site; E66.9 Obesity, unspecified; D63.1 Anemia in chronic kidney disease; Z87.891 Personal history of nicotine dependence; Z95.5 Presence of coronary angioplasty implant and graft; Z99.2 Dependence on renal dialysis; Z86.73 Personal history of transient ischemic attack (TIA), and cerebral infarction without residual deficits; Z85.810 Personal history of malignant neoplasm of tongue; Z95.1 Presence of aortocoronary bypass graft; Z87.11 Personal history of peptic ulcer disease; Z68.30 Body mass index [BMI] 30.0-30.9, adult
CPT/HCPCS: C9113; J0780; J2405; J2916; J3475; J3480; J7040; J7050; J7120; P9045; Q9967

== ENCOUNTER → 2016-08-29 | Day surgery (SDC) | payer MEDICARE, BC ==
[~2016-08-29] VITALS: Ht 152.4 cm; Wt 73.8 kg
[~2016-08-29] MED LIST changes: +"\\\"PREP SPRAY\\\"-TIN4 OZ"; +COZAAR50 MG PO; +EPOGEN; +EPOGEN (2020000 UNIT; +GENTAMICIN SULF30 GM TOP; +MIDODRINE HCL10 MG PO; +MIDODRINE HCL5 MG PO; +NORCO 5-325 TA1 EACH PO; +NORVASC10 MG PO; +NOVOLOG FL100 UNIT/1 SUB-Q
--- NOTE | ~2016-08-29 | OR ---
PATIENT'S NAME: INOCENCIA ARMIJO [facility] AGE: 81 Y [address] ROOM: [place] [address] LOCATION: [facility] ADMIT DATE: 08/29/2016 OR/Procedure Report DISCHARGE DATE: FAMILY PHYSICIAN: ALYSSA RADER DO ATTENDING PHYSICIAN: LUTHER MAZARIEGOS SURGEON: Luther Mazariegos MD SUPERVISOR DATA PROCESSING: DATE OF PROCEDURE: 08/29/2016 PREOPERATIVE DIAGNOSIS: End-stage renal disease. POSTOPERATIVE DIAGNOSIS: End-stage renal disease. PROCEDURE: Left arm brachiocephalic AV fistula superficialization. MUSEUM DIRECTOR: RAFIA Molina. ANESTHESIA: General. ESTIMATED BLOOD LOSS: 20 mL. OPERATIVE FINDINGS: Fistula sewn in place at the level of the skin, easily palpable at the end of the case. DESCRIPTION OF PROCEDURE: The patient was brought to the operating room, placed supine on the operative table, prepped and draped in a sterile manner after being placed under general anesthesia. Preoperative time-out was performed. The patient received preoperative antibiotics. We made an incision along the path of the cephalic vein. The left upper extremity which had previously been turned into an AV fistula, but now was too deep to access. We dissected down the fascia, incised the fascia in a longitudinal manner, dissected out the cephalic vein in a 360-degree fashion, ligated and transecting any side branches. We then reapproximated the deep layers with 2- 0 and 3-0 Vicryl. Skin was then closed with running 4-0 Monocryl, sewing the vein under the surface, easily palpable under the skin. The skin was also covered with Steri-Strips. The patient tolerated the procedure well, awoken in the operating room, transferred to recovery room and home later that day. LUTHER MAZARIEGOS MD FKIndigo/modl [facility]: [facility] 81 [facility] [address] ROOM: [place] [address] LOCATION: [facility] ADMIT DATE: 08/29/2016 OR/Procedure Report DISCHARGE DATE: FAMILY PHYSICIAN: ALYSSA RADER DO ATTENDING PHYSICIAN: LUTHER MAZARIEGOS /[id number] d: 08/29/162050 t: 09/02/16 1200, OPERATIVE SUMMARY
[2016-08-29 06:46] LABS: HEMOGLOBIN 12.8 g/dL (10.0-15.0); MCV 89.2 fl (83.0-98.0); MPV 10.4 fl (9.4-12.4); PLATELET COUNT 93 K/uL (150-450); WBC 7.3 K/uL (4.0-11.0)
[2016-08-29 06:58] LABS: ALBUMIN 3.1 gm/dL (3.5-5.0); ANION GAP 14.2 (10.0-19.0); CALCIUM 8.5 mg/dL (8.5-10.5); POTASSIUM 4.2 mMol/L (3.7-5.1); TOTAL PROTEIN 7.4 g/dL (6.0-8.4)
[2016-08-29 07:03] LABS: CREATININE 4.2 mg/dL (0.5-1.1); TOTAL BILIRUBIN 0.5 mg/dL (0.0-1.5)
[2016-08-29 07:05] LABS: RBC 4.74 M/uL (3.00-5.00)
[2016-08-29 07:06] LABS: HEMATOCRIT 42.3 % (30.0-46.0); MCHC 30.3 gm/dL (32.0-36.5); RDW-CV 18.5 % (11.9-14.6)
[2016-08-29 07:41] LABS: ABSOLUTE NEUTROPHIL CT (ANC) 5.3 K/uL (1.8-7.8); BANDED NEUTROPHIL # 0.1 K/uL (0.0-0.1); BANDED NEUTROPHILS % 1 %; LYMPHOCYTE # 0.9 K/uL (0.8-4.0); LYMPHOCYTE % 13 %; MONOCYTE # 0.7 K/uL (0.0-1.0); SEGMENTED NEUTROPHIL # 5.3 K/uL (1.8-7.8); SEGMENTED NEUTROPHIL % 72 %
== END | disposition disaster alternative care site (69) ==
LOC: GPOC 08-26 14:00 → GSDC 05:42 → GPOC 14:00
PROVIDERS: Surgery Vascular Surgery
PROC: 05WY0JZ Revision of Synthetic Substitute in Upper Vein, Open Approach (ICD-10-PCS; principal; 2016-08-29)
DX: E11.22 Type 2 diabetes mellitus with diabetic chronic kidney disease (principal); I13.2 Hypertensive heart and chronic kidney disease with heart failure and with stage 5 chronic kidney disease, or end stage renal disease; I50.9 Heart failure, unspecified; N18.6 End stage renal disease; I48.91 Unspecified atrial fibrillation; I25.810 Atherosclerosis of coronary artery bypass graft(s) without angina pectoris; J44.9 Chronic obstructive pulmonary disease, unspecified; G47.33 Obstructive sleep apnea (adult) (pediatric); E03.9 Hypothyroidism, unspecified; D64.9 Anemia, unspecified; F32.9 Major depressive disorder, single episode, unspecified; M19.90 Unspecified osteoarthritis, unspecified site; Z99.2 Dependence on renal dialysis; Z79.4 Long term (current) use of insulin; Z79.899 Other long term (current) drug therapy
CPT/HCPCS: J7030

== ENCOUNTER → 2016-10-04 | Outpatient (CLI) | payer MEDICARE, BC ==
[~2016-10-04] VITALS: Ht 153.7 cm; Wt 77.0 kg
--- NOTE | ~2016-10-04 | OR ---
PATIENT'S NAME: INOCENCIA ARMIJO [facility] AGE: 81 Y [address] ROOM: [place] [address] LOCATION: [facility] ADMIT DATE: 10/04/2016 OR/Procedure Report DISCHARGE DATE: FAMILY PHYSICIAN: ALYSSA RADER DO ATTENDING PHYSICIAN: LUTHER BOND SURGEON: Luther Bond MD MANAGER HARBOR: DATE OF PROCEDURE: 10/04/2016 PREOPERATIVE DIAGNOSIS: Fistula with high-grade stenosis. POSTOPERATIVE DIAGNOSIS: Fistula with high-grade stenosis. PROCEDURES PERFORMED: Left arm fistulogram and fistuloplasty with stenting. C.O.D. CLERK: Ade Montero RN ANESTHESIA: MAC, local. ESTIMATED BLOOD LOSS: 50 mL. OPERATIVE FINDINGS: High-grade stenosis in the outflow vein tract, which would not expand with the regular balloons. Attempted cutting balloon angioplasty, which resulted in perforation and required cover stent placement x2. PROCEDURE IN DETAIL: The patient was brought to Deburr Operator, placed supine on the laborer steel handling table, and prepped and draped in a sterile manner. A preoperative time-out was performed. We gained access using ultrasound guidance to the fistula in the left arm using micropuncture needle, followed by micropuncture wire and followed by micropuncture sheath. We infiltrated the skin with 1% lidocaine for pain relief. We exchanged using a Seldinger technique for a 4- Anguillan sheath. We would, at the end of the case, exchange for a 7-Anguillan in order to place the stents. We were able to pass a Thruway wire across the lesion and perform a fistulogram. There was a high-grade mid-fistula stenosis. We attempted angioplasty with a 5 x 40 and a 6 x 40 balloon. However, the stenosis would not give. We then decided to angioplasty with a 5-mm AngioSculpt balloon, which did relieve the stenosis; however, created a perforation. We stopped her Angiomax. 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 We stopped her infusion, and we held pressure. We placed a 6-mm balloon into the arm. There was still extravasation after 5 minutes, and the patient was developing a hematoma. So, we then deployed two 7 x 16 iCAST stents, stopping the PATIENT'S NAME: INOCENCIA ARMIJO [facility] AGE: 81 Y [address] ROOM: [place], [place] [address] LOCATION: [facility] ADMIT DATE: 10/04/2016 OR/Procedure Report DISCHARGE DATE: FAMILY PHYSICIAN: ALYSSA RADER DO ATTENDING PHYSICIAN: LUTHER BOND. After we did this, the fistula felt like it had a very good thrill. There was no more pulsatility and it had a strong bruit. The patient did have a small hematoma, but not anything that required admission to the hospital. We removed the sheath and we placed a single 4-0 nylon for hemostasis. We held pressure for 5 minutes at the puncture site. DISPOSITION: The patient tolerated the procedure well, and was transferred to the Recovery Room and home later that day. MD FILEMON COYNE/modl /[id number] d: 10/05/16 0014 t: 10/07/16 1743, OPERATIVE SUMMARY
[2016-10-04 14:35] LABS: BASOPHIL # 0.1 K/uL (0.0-0.2); EOSINOPHIL # 0.2 K/uL (0.0-0.5); EOSINOPHIL % 2.8 %; HEMOGLOBIN 10.4 g/dL (10.0-15.0); IMMATURE GRANULOCYTE # 0.1 K/uL (0.0-0.3); IMMATURE GRANULOCYTE % 1.2 %; LYMPHOCYTE # 0.8 K/uL (0.8-4.0); LYMPHOCYTE % 13.2 %; MCHC 31.7 gm/dL (32.0-36.5); MCV 88.4 fl (83.0-98.0); MONOCYTE # 0.6 K/uL (0.0-1.0); MONOCYTE % 10.7 %; MPV 10.3 fl (9.4-12.4); NEUTROPHIL # (ANC) 4.3 K/uL (1.8-7.8); NEUTROPHIL % 71.1 %; NRBC % 0 /100WBC (0-0.00); PLATELET COUNT 78 K/uL (150-450); RBC 3.71 M/uL (3.00-5.00); RDW-CV 18.5 % (11.9-14.6)
[2016-10-04 14:36] LABS: HEMATOCRIT 32.8 % (30.0-46.0)
[2016-10-04 14:52] LABS: ALBUMIN 2.8 gm/dL (3.5-5.0); ANION GAP 9.8 (10.0-19.0); CALCIUM 8.3 mg/dL (8.5-10.5); CREATININE 2.2 mg/dL (0.5-1.1); POTASSIUM 3.8 mMol/L (3.7-5.1); TOTAL BILIRUBIN 0.5 mg/dL (0.0-1.5); TOTAL PROTEIN 6.8 g/dL (6.0-8.4)
== END | disposition disaster alternative care site (69) ==
LOC: GPOC 10-02 14:00 → GPCU 13:38 → GPOC 13:38
PROVIDERS: Surgery Vascular Surgery
PROC: 057Y3DZ Dilation of Upper Vein with Intraluminal Device, Percutaneous Approach (ICD-10-PCS; principal; 2016-10-04)
DX: T82.858A Stenosis of other vascular prosthetic devices, implants and grafts, initial encounter (principal); E11.22 Type 2 diabetes mellitus with diabetic chronic kidney disease; I12.0 Hypertensive chronic kidney disease with stage 5 chronic kidney disease or end stage renal disease; N18.6 End stage renal disease; Z99.2 Dependence on renal dialysis; Z79.4 Long term (current) use of insulin; I25.10 Atherosclerotic heart disease of native coronary artery without angina pectoris; G47.33 Obstructive sleep apnea (adult) (pediatric); J44.9 Chronic obstructive pulmonary disease, unspecified; Z85.810 Personal history of malignant neoplasm of tongue; Z86.73 Personal history of transient ischemic attack (TIA), and cerebral infarction without residual deficits; I48.91 Unspecified atrial fibrillation; D64.89 Other specified anemias; I50.9 Heart failure, unspecified; Z87.891 Personal history of nicotine dependence
CPT/HCPCS: C1725; C1769; C1874; J0583; J0690; J2001; J2250; J3010; J7030; J7060